=== PATIENT | male | born 1980 | race Two or more races ===

== ENCOUNTER 2025-03-12 14:23 | Emergency (ER) | payer MEDICAID ==
[~2025-03-12] VITALS: Ht 170.2 cm; Wt 82.6 kg
[2025-03-12 14:23] VITALS: BP 122/88; PULSE 100; RESP 18; TEMP 98.5; O2SAT 96
--- NOTE | 2025-03-12 18:14 | ED.PDOC ---
History of Present Illness HPI Comments 44M presents to the ER w/ no prior Hx associated to the c/c of Jaw pain. Pt reports on having jaw pain for 3 weeks. PMHx of Anxiety, Depression, Schiophrenic and Bipolar Disorder. Denies chills, fever, N/V/D, SOB, CP or other associated symptom's, modifiers, or recent injuries or sick contact at this time. Chief Complaint: Jaw Pain Time Seen by MD: 18:00 Primary Care Provider: NONE Reviewed Notes: Nurses Notes, Medications, Allergies Allergies: Coded Allergies: NO KNOWN ALLERGIES (Unverified , 06/21/11) Information Source: Patient Mode of Arrival: Ambulatory Severity: Moderate Timing: Weeks Duration: Since onset Prehospital treatment: None Past Medical History PAST MEDICAL HISTORY: Anxiety, Depression, Schizophrenia Past Medical History (Other): Bipolar Disorder Surgical History: Denies all surgeries Family History Family History: Reviewed,noncontributory to illness, Unknown Social History Smoker: Cigarettes, Less Than 1 Pack/Day Alcohol: Occasionally Drugs: Marijuana, Methamphetamine Lives In: Home Constitutional: reports: others (Jaw Pain); denies: chills, diaphoresis, fatigue, fever, malaise, sweats, weakness EENTM: denies: blurred vision, double vision, ear bleeding, ear discharge, ear drainage, ear pain, ear ringing, eye pain, eye redness, hearing loss, mouth pain, mouth swelling, nasal discharge, nose bleeding, nose congestion, nose pain, photophobia, tearing, throat pain, throat swelling, voice changes, others Respiratory: denies: cough, hemoptysis, orthopnea, SOB at rest, shortness of breath, SOB with excertion, stridor, wheezing, others Cardiovascular: denies: chest pain, dizzy spells, diaphoresis, Dyspnea on exertion, edema, irregular heart beat, left arm pain, lightheadedness, palpitations, PND, syncope, others Gastrointestinal: denies: abdomen distended, abdominal pain, blood streaked bowels, constipated, diarrhea, dysphagia, difficulty swallowing, hematemesis, melena, nausea, poor appetite, poor fluid intake, rectal bleeding, rectal pain, vomiting, others Genitourinary: denies: burning, dysuria, flank pain, frequency, hematuria, incontinence, penile discharge, penile sore, pain, testicle pain, testicle swelling, urgency, others Neurological: denies: dizziness, fainting, headache, left sided numbness, left sided weakness, numbness, paresthesia, pre-existing deficit, right sided numbness, right sided weakness, seizure, speech problems, tingling, tremors, weakness, others Musculoskeletal: denies: back pain, gout, joint pain, joint swelling, muscle pain, muscle stiffness, neck pain, others Integumetry: denies: bruises, change in color, change in hair/nails, dryness, laceration, lesions, lumps, rash, wounds, others Allergic/Immunocompromised: denies: Difficulty Healing, Frequent Infections, Hives, Itching, others Hematologic/Lymphatic: denies: anemia, blood clots, easy bleeding, easy bruising, swollen glands, others Endocrine: denies: excessive hunger, excessive sweating, excessive thirst, excessive urination, flushing, intolerance to cold, intolerance to heat, unexplained weight gain, unexplained weight loss, others Psychiatric: denies: anxiety, bipolar disorder, depression, hopeless, panic disorder, schizophrenia, sleepless, suicidal, others All Other Systems: Reviewed and Negative Physical Exam General Appearance: Mild Distress, Moderate Distress, Normal HEENT: Normal ENT Inspection, PERRL/EOMI, Pharynx Normal, TM Abnormal (L), TMs Normal, Other (Patient with a CVA or TMJ pain for about three weeks has mild trismus teeth are normal ears is normal mandible is normal TMJ very painful to morbidity and pressure no swelling) Neck: Full Range of Motion, Non-Tender, Normal, Normal Inspection Respiratory: Chest Non-Tender, Lungs Clear, No Accessory Muscle Use, No Respiratory Distress, Normal Breath Sounds Cardiovascular: No Edema, No JVD, No Murmur, No Gallop, Normal Peripheral Pulses, Regular Rate/Rhythm Breast Exam: Deferred Gastrointestinal: No Organomegaly, Non Tender, No Pulsatile Mass, Normal Bowel Sounds, Soft Genitalia: Deferred Pelvic: Deferred Rectal: Deferred Extremities: No calf tenderness, Normal capillary refill, Normal inspection, Normal range of motion, Non-tender, No pedal edema Musculoskeletal : Apperance: Normal Neurologic: Alert, surgical instrument maker II-XII nml as Tested, No Motor Deficits, Normal Affect, Normal Mood, No Sensory Deficits Cerebellar Function: Normal Reflexes: Normal Skin: Dry, Normal Color, Warm Peripheral Pulses: 1+ carotid (R), 1+ carotid (L) Lymphatic: No Adenopathy Was a procedure done? Was a procedure done?: No Differential Dx Considerations may include: TMJ inflammation tooth E[place]ie earache mastoiditis jaw dislocation or subluxation X-Ray, Labs, Meds, VS Vital Signs Date Time Temp Pulse Resp B/P (MAP) Pulse Ox O2 Delivery O2 Flow Rate FiO2 03/12/25 14:23 98.5 100 18 122/88 (99) 96 98.5 X-Ray, Labs, Meds, VS Comment Course in the emergency department eventful patient came in complaining of jaw pain for about three weeks going to his ear You has little trismus but no signs of dislocation After the physical exam patient will be referred to dentist or oral surgeon for TMJ malfunction Time of 1ST Reevaluation: 18:30 Reevaluation 1ST: Unchanged Time of 2ND Reevaluation: 18:18 Reevaluation 2ND: Unchanged Consultation: PCP, Other (Dentist or oral surgeon) Patient Education/Counseling: Diagnosis, Treatment, Prognosis, Need For Follow Up Family Education/Counseling: Diagnosis, Treatment, Prognosis, Need For Follow Up, No Family Present Departure 1 Departure Time of Disposition: 18:19 Impression: Primary Impression: Left-sided temporomandibular joint pain-dysfunction syndrome Disposition: 01 HOME / SELF CARE / HOMELESS Condition: Fair Additional Instructions: Local heat and you need to follow up with a dentist or an oral surgeon for further care e-Prescriptions Hydrocodone-Acetaminophen (Hydrocodone Bitartrate/AC 5-325 mg) 1 Tab Tab 1 TAB PO B.i.d. for 5 Days, #10 TAB Prov: PHYLLIS PAREDES MD 03/12/25 Cyclobenzaprine Hcl (Cyclobenzaprine Hcl) 10 Mg Tab 10 MG PO T.i.d. for 10 Days, #30 TAB Prov: PHYLLIS PAREDES MD 03/12/25 Naproxen (NAPROSYN TABLET) 500 Mg Tb 1 TAB PO BID for 10 Days, #20 TAB 1 Refill Prov: PHYLLIS PAREDES MD 03/12/25 Discharged With: Self Critical Care Note Critical Care Time?: No Stability Stability form required: No Heart Score Heart Score: Heart Score Response (Comments) Value History N/A 0 EKG N/A 0 Age <45 0 Risk Factors No known risk factors 0 Troponin N/A 0 Total 0 I personally scribed for PHYLLIS PAREDES MD ([email or web address]) on 03/12/25 at 18:14. Electronically submitted by Christopher Ferguson ([email or web address]). PHYLLIS PAREDES MD Mar 12, 2025 18:14
[2025-03-12] MEDS ORDERED: HYDR-4902 PO (18:26)
[2025-03-12] MEDS ORDERED: NAP500T PO (18:26)
[2025-03-12] MEDS ORDERED: CYCL-839 PO (18:26)
[2025-03-12] MEDS ORDERED: KETOROLAC TROMETH 60MG/2ML VIAL IM ONE (18:30)
== END 2025-03-12 20:57 | disposition home or self-care (01) ==
LOC: ER 14:23
DX: M26.622 Arthralgia of left temporomandibular joint (principal); F41.9 Anxiety disorder, unspecified; F32.A Depression, unspecified; F20.9 Schizophrenia, unspecified; F17.210 Nicotine dependence, cigarettes, uncomplicated; F12.90 Cannabis use, unspecified, uncomplicated